=== PATIENT | male | born 1960 | race African-American/Black ===

== ENCOUNTER 2021-03-29 12:51 | Emergency (ER) | payer OTHER ==
[~2021-03-29] VITALS: Ht 172.7 cm; Wt 62.1 kg
--- NOTE | ~2021-03-29 | EMS ---
[address] [address] EMS Patient Care Report Name: LAZARO ULRICH Room #: DEP NANCY Choe#: [id number] Admission: 03/29/21 Attend Phys: Discharge: 03/29/21 Date of : 60 Report #: [id number] THIS REPORT FOR: //name// Report Transmitted: 03/30/2021 11:10 EMS Care Summary [place], [place]/[facility] Incident [id number] @ 03/29/2021 12:21 Incident Location [address] [place] [address] 109 Patient LAZARO ULRICH Male, 60 Years 1960 Patient Address [address] [place] [id number] Elevation (STEMI) Myocardial Infarction,Schizophrenia, Patient Allergies No known allergies, Patient Medications Lasix, Losartan, Coreg, Atorvastatin, Plavix, Chief Complaint CANNABIS ABUSE Disposition Transported No Lights/[place] Dispatch Reason Overdose/Poisoning/Ingestion Transported To [facility] Narrative UPON ARRIVAL WE FOUND OUR 60 YEAR OLD MALE PATIENT LAYING IN BED AT [facility] IN A PSEUDO UNCONSCIOUS STATE WITH STAFF BY HIS SIDE. STAFF STATES THE PATIENT WAS CAUGHT SMOKING MARIJUANA EARLY THIS MORNING AND THEN BECAME PSEUDO UNCONSCIOUS AFTER MASTERBATING ALL MORNING. THE PATIENT IS NOT ALERT, BUT HE IS [address] [address] EMS Patient Care Report Name: LAZARO ULRICH Room #: DEP ER Дмитрий#: [id number] Admission: 03/29/21 Attend Phys: Discharge: 03/29/21 Date of : 60 Report #: [id number] ACTIVELY PICKING HIS NOSE AND HE FAILS THE ARM DROP TEST. STAFF REQUESTS THE PATIENT BE TRANSPORTED TO [facility] FOR EVALUATION. Initial Vitals @12:35P: 80,R: 18,BP: 154/74,Pain: 0/10,GCS: 14,Glucose: 113,SpO2: 100,Revised Trauma: 12, @12:48P: 100,R: 18,BP: 150/76,Pain: 0/10,GCS: 15,SpO2: 98,Revised Trauma: 12, Assessments @12:34MENTAL:Other,SKIN:HEENT:Eyes: Left Pupil: 3-mm,Eyes: Right Pupil: 3-mm,Head/Face: No Abnormalities,Neck/Airway: No Abnormalities,LUNG SOUNDS:General: No Abnormalities,ABDOMEN:General: No Abnormalities,PELVIS//GI:No Abnormalities,EXTREMITIES:Left Arm: No Abnormalities,Right Arm: No Abnormalities,Left Leg: No Abnormalities,Right Leg: No Abnormalities,PULSE:Radial: 2+ Normal,Pedal: 2+ Normal,NEURO:No Abnormalities, Impression Poisoning / Drug Ingestion Procedures @12:34 ALS Assessment Response: UnchangedSucceeded Timeline 12:20,Call Received 12:20,Dispatch Notified 12:21,Dispatched 12:21,En Route 12:32,On Scene 12:34,At Patient 12:34,ALS Assessment,Response: UnchangedSucceeded, 12:35,BP: 154/74 M,PULSE: 80,RR: 18 R,SPO2: 100 Ox,ETCO2: ,B,PAIN: 0,GCS: 14, 12:37,Depart Scene 12:48,BP: 150/76 M,PULSE: 100,RR: 18 R,SPO2: 98 Ox,ETCO2: ,BG: ,PAIN: 0,GCS: 15, 12:49,At Destination 13:05,Call Closed Disclaimer v1.1 Copyright 2021 [employer] This EMS Care Summary contains data elements from the applicable legal record (which may be displayed differently). It is designed to provide pertinent information for the following purposes: continuity of care, clinical quality, and state data reporting. The complete legal record is available to ED staff [address] [address] EMS Patient Care Report Name: LAZARO ULRICH Room #: DEP Дмитрий#: [id number] Admission: 03/29/21 Attend Phys: Discharge: 03/29/21 Date of : 60 Report #: [id number] and administrators of the receiving hospital in [employer] Patient Tracker. All data is provided "as is."
--- NOTE | ~2021-03-29 | EMS ---
[address] [address] EMS Patient Care Report Name: LAZARO ULRICH Room #: DEP NANCY Choe#: [id number] Admission: 03/29/21 Attend Phys: Discharge: 03/29/21 Date of : 60 Report #: [id number] THIS REPORT FOR: //name// Report Transmitted: 03/31/2021 16:18 EMS Care Summary [place], [place]/[facility] Incident [id number] @ 03/29/2021 12:21 Incident Location [address] [place] [address] Patient LAZARO ULRICH Male, 60 Years 1960 Patient Address [address] [place], [place] [id number] Patient History ST Elevation (STEMI) Myocardial Infarction,Schizophrenia, Patient Allergies No known allergies, Patient Medications Lasix, Losartan, Coreg, Atorvastatin, Plavix, Chief Complaint CANNABIS ABUSE Disposition Transported No Lights/[place] Dispatch Reason Overdose/Poisoning/Ingestion Transported To [facility] Narrative UPON ARRIVAL WE FOUND OUR 60 YEAR OLD MALE PATIENT LAYING IN BED AT [facility] IN A PSEUDO UNCONSCIOUS STATE WITH STAFF BY HIS SIDE. STAFF STATES THE PATIENT WAS CAUGHT SMOKING MARIJUANA EARLY THIS MORNING AND THEN BECAME PSEUDO UNCONSCIOUS AFTER MASTERBATING ALL MORNING. THE PATIENT IS NOT ALERT, BUT HE IS [address] [address] EMS Patient Care Report Name: LAZARO ULRICH Room #: DEP ER Дмитрий#: [id number] Admission: 03/29/21 Attend Phys: Discharge: 03/29/21 Date of : 60 Report #: [id number] ACTIVELY PICKING HIS NOSE AND HE FAILS THE ARM DROP TEST. STAFF REQUESTS THE PATIENT BE TRANSPORTED TO [facility] FOR EVALUATION. Initial Vitals @12:35P: 80,R: 18,BP: 154/74,Pain: 0/10,GCS: 14,Glucose: 113,SpO2: 100,Revised Trauma: 12, @12:48P: 100,R: 18,BP: 150/76,Pain: 0/10,GCS: 15,SpO2: 98,Revised Trauma: 12, Assessments @12:34MENTAL:Other,SKIN:HEENT:Eyes: Left Pupil: 3-mm,Eyes: Right Pupil: 3-mm,Head/Face: No Abnormalities,Neck/Airway: No Abnormalities,LUNG SOUNDS:General: No Abnormalities,ABDOMEN:General: No Abnormalities,PELVIS//GI:No Abnormalities,EXTREMITIES:Left Arm: No Abnormalities,Right Arm: No Abnormalities,Left Leg: No Abnormalities,Right Leg: No Abnormalities,PULSE:Pedal: 2+ Normal,Radial: 2+ Normal,NEURO:No Abnormalities, Impression Poisoning / Drug Ingestion Procedures @12:34 ALS Assessment Response: UnchangedSucceeded Timeline 12:20,Call Received 12:20,Dispatch Notified 12:21,Dispatched 12:21,En Route 12:32,On Scene 12:34,At Patient 12:34,ALS Assessment,Response: UnchangedSucceeded, 12:35,BP: 154/74 M,PULSE: 80,RR: 18 R,SPO2: 100 Ox,ETCO2: ,B,PAIN: 0,GCS: 14, 12:37,Depart Scene 12:48,BP: 150/76 M,PULSE: 100,RR: 18 R,SPO2: 98 Ox,ETCO2: ,BG: ,PAIN: 0,GCS: 15, 12:49,At Destination 13:05,Call Closed Disclaimer v1.1 Copyright 2021 [employer] This EMS Care Summary contains data elements from the applicable legal record (which may be displayed differently). It is designed to provide pertinent information for the following purposes: continuity of care, clinical quality, and state data reporting. The complete legal record is available to ED staff [address] [address] EMS Patient Care Report Name: LAZARO ULRICH Room #: DEP Дмитрий#: [id number] Admission: 03/29/21 Attend Phys: Discharge: 03/29/21 Date of : 60 Report #: [id number] and administrators of the receiving hospital in [employer] Patient Tracker. All data is provided "as is."
[2021-03-29 13:10] LABS: HEMATOCRIT 43.4 % (42.0-52.0); HEMOGLOBIN 14.5 gm/dL (14.0-18.0); MONOCYTES 12.3 % (1.0-8.0); RBC 4.67 mil/uL (4.50-6.00)
[2021-03-29 13:11] LABS: URINE BILIRUBIN NEGATIVE (Negative); URINE BLOOD NEGATIVE (Negative); URINE CLARITY HAZY; URINE COLOR YELLOW; URINE GLUCOSE-RANDOM* NEGATIVE (Negative); URINE KETONES TRACE (Negative); URINE LEUKOCYTES-REFLEX 2+ (Negative); URINE NITRITE-REFLEX NEGATIVE (Negative); URINE PROTEIN (DIPSTICK) NEGATIVE (Negative); URINE SPECIFIC GRAVITY 1.025 (1.005-1.035)
[2021-03-29 13:11] LABS: ABSOLUTE NEUTROPHILS 4.5 thou/uL (1.4-8.2); BASOPHILS 0.7 % (0.0-2.0); LYMPHOCYTES 27.3 % (24.0-44.0); MCH 30.9 pg (26.0-34.0); MCHC 33.3 g/dL (28.0-37.0); MCV 92.8 fL (80.0-100.0); PLATELET COUNT 213 thou/uL (150-400); POLYS 58.7 % (36.0-66.0); RDW 13.2 % (10.5-14.5); WBC 7.7 thou/uL (4.0-11.0)
[2021-03-29 13:21] LABS: CALCIUM 9.3 mg/dL (8.5-10.1); CREATININE 0.9 mg/dL (0.7-1.3); POTASSIUM 3.7 mmol/L (3.5-5.1)
[2021-03-29 13:24] LABS: AMP/METHAMP Negative (Negative); BARBITURATES Negative (Negative); BENZODIAZEPINES Negative (Negative); COCAINE Negative (Negative); METHADONE Negative (Negative); OPIATES Negative (Negative); PCP Negative (Negative)
[2021-03-29 13:25] LABS: SQUAMOUS 0-3 Few /LPF (0-3); URINE RBC None Seen /HPF (NONE SEEN); URINE WBC-REFLEX >25 Many /HPF (0-5)
[2021-03-29 13:26] LABS: ALBUMIN 3.6 g/dL (3.4-5.0); TOTAL BILIRUBIN 0.4 mg/dL (0.2-1.0); TOTAL PROTEIN 7.5 g/dL (6.4-8.2)
[2021-03-29 13:33] LABS: BACTERIA-REFLEX 1-9 Few /HPF (None Seen); CASTS None Seen /LPF (None Seen); CRYSTALS None Seen /LPF (None Seen)
--- NOTE | 2021-03-29 13:35 | EKG ---
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: : 1960 Requested By: Michael Maza Order Number: [id number] MD: Jong Acosta Measurements Intervals [place] Rate: 85 P: 74 MA: 122 QRS: 28 QRSD: 73 T: -59 QT: 382 QTc: 455 Interpretive Statements Sinus rhythm Probable left atrial enlargement Abnormal T, consider ischemia, inferior leads No previous ECG available for comparison Electronically Signed On 03-29-2021 13:35:27 UPHOLSTERY TECHNICIAN by Jong Acosta [email or web address] <ELECTRONICALLY SIGNED> By: Jong Acosta MD, [facility] 03/29/21 [id number] Jong Acosta MD, FACC /EPI
[2021-03-29] MEDS ORDERED: CEPHALEXIN500 MG PO (15:28)
[2021-03-29 16:08] VITALS: BP 105/69
== END 2021-03-29 16:09 ==
LOC: ER 12:51
PROVIDERS: Physician Assistant
DX: N39.0 Urinary tract infection, site not specified (principal); R41.82 Altered mental status, unspecified; Z88.0 Allergy status to penicillin; Z88.6 Allergy status to analgesic agent; Z88.1 Allergy status to other antibiotic agents